=== PATIENT | female | born 1985 | race Two or more races ===

== ENCOUNTER 2018-02-27 15:32 | Outpatient (CLI) | payer SELFPAY ==
[~2018-02-27] VITALS: Ht 157.5 cm; Wt 71.8 kg
[2018-02-27 15:52] VITALS: BP 111/68
[2018-02-27 17:45] LABS: BASOPHIL (%) 0.4 % (0-1); EOSINOPHIL (%) 5.1 % (0-5); EOSINOPHIL COUNT 0.5 K/uL (0-0.3); HEMATOCRIT 32.3 % (36.0-46.0); HEMOGLOBIN 11.2 G/DL (11.9-15.5); IMMATURE GRANULOCYTE (%) 0.9 % (0.0-0.7); LYMPHOCYTE (%) 17.5 % (15-42); LYMPHOCYTE COUNT 1.8 K/uL (1.0-2.8); MCH 31.3 PG (29.0-34.0); MCHC 34.7 G/DL (30.0-36.0); MCV 90.2 FL (83-99); MONOCYTE (%) 7.2 % (3-12); MONOCYTE COUNT 0.7 K/uL (0-0.8); NEUTROPHIL (%) 68.9 % (45-76); NEUTROPHIL COUNT 7.1 K/uL (1.8-6.4); PLATELET COUNT 305 K/uL (156-360); RBC DIS.WIDTH-CV 12.5 % (11.8-14.6); RBC DIS.WIDTH-SD 41.3 % (39-53); RED BLOOD COUNT 3.58 M/uL (3.80-5.20); WHITE BLOOD COUNT 10.3 K/uL (4.1-10.2)
[2018-02-28 10:21] LABS: TREPONEMA ANTIBODY NEGATIVE (NEGATIVE)
[2018-03-01 11:01] LABS: HEPATITIS B SURFACE ANTIGEN Nonreactive; HIV-1/2 AB/AG COMBO Nonreactive
== END 2018-02-27 18:15 | disposition home or self-care (01) ==
LOC: LDRP-OP 15:32 → 2WEST 15:33
PROVIDERS: Advanced Practice Midwife
DX: Z34.82 Encounter for supervision of other normal pregnancy, second trimester (principal); Z3A.21 21 weeks gestation of pregnancy
CPT/HCPCS: 59025; 85025; 86762; 86780; 86850; 86900; 86901; 87086; 87340; 87389; G0378